=== PATIENT | female | born 1950 | race Caucasian/White ===

== ENCOUNTER → 2021-05-02 | Day surgery (SDC) | payer MEDICARE | LOC: MAMMO 06:53 | PROVIDERS: ATTEND Specialist | PROC: 0H9U3ZX Drainage of Left Breast, Percutaneous Approach, Diagnostic (ICD-10-PCS; principal; 2021-05-02) | DX: D24.2 Benign neoplasm of left breast (principal) | CPT/HCPCS: 19081; 76098; 88305 ==